=== PATIENT | male | born 1945 | race Caucasian/White ===

== ENCOUNTER 2020-06-18 09:26 | Outpatient (CLI) | payer MEDICARE, OTHER, SELFPAY ==
--- NOTE | 2020-06-18 09:45 | XR_ITS ---
WS: [id number] EXAM: ABDOMINAL KUB DATE OF EXAMINATION: 06/18/2020, 0945 hours COMPARISON: Abdominal KUB from 10/03/2018 HISTORY: Patient is 75 years old with any stone follow-up. FINDINGS: Bowel gas pattern is normal. Clips in the right upper quadrant correlate with cholecystectomy changes . Few flecks of calcific density are seen overlying the area of the left kidney silhouette. Whether t his is in the colon or in the kidney is uncertain. There is a dense focus within the left paraspinal region L2-3 level. Not convinced this represents a ureteral stone secondary to the density. Most like ly is an ingested density. No calcifications are seen over the course of the ureters. Multiple calcif ications in the pelvis are felt to represent phleboliths. XR/XR KUB [id number] IMPRESSION: Questionable small calcifications overlying the left kidney silhouette versus i n the colon. Otherwise no definite calcifications to suggest renal or ureteral calculi noted.
== END 2020-06-18 09:27 | disposition home or self-care (01) ==
LOC: RAD 09:33
PROVIDERS: PCP Family Medicine; Visit Provider Urology
DX: N20.9 Urinary calculus, unspecified (principal)
CPT/HCPCS: 74018; 81001

== ENCOUNTER 2021-01-12 06:00 | Outpatient (RCR) | payer MEDICARE, OTHER, SELFPAY | END 2021-01-27 23:59 | disposition home or self-care (01) | LOC: GPT 06:00 | PROVIDERS: PCP Family Medicine; Referring Provider Family Medicine; Visit Provider Family Medicine | DX: M25.562 Pain in left knee (principal) | CPT/HCPCS: 97032; 97110; 97112; 97140; 97161; 97530 ==

== ENCOUNTER 2021-06-21 09:05 | Outpatient (CLI) | payer MEDICARE, OTHER, SELFPAY ==
--- NOTE | 2021-06-21 09:15 | XR_ITS ---
WS: [id number] Exam: XR KUB [id number] Date/Time of Exam: 06/21/2021 9:15 AM Reason For Exam: UROLITHIASIS Comparison 06/18/2020. 3 mm calcification superimposes the left renal silhouette and probably represents a renal stone. This can be seen on the prior study. No other calcifications are noted over the region of the kidneys. No bowel obstruction or free air. Visualized organ margins appear normal. Signs of prior cholecystectom y. Numerous pelvic calcifications noted which are probably phleboliths. XR/XR KUB [id number] IMPRESSION: 1. 3 mm calcification superimposes the lower pole left kidney and probably repr esents a small renal stone. 2. No acute abdominal finding.
== END 2021-06-21 09:06 | disposition home or self-care (01) ==
LOC: RAD 09:09
PROVIDERS: PCP Family Medicine; Visit Provider Urology
DX: N20.9 Urinary calculus, unspecified (principal); Z12.5 Encounter for screening for malignant neoplasm of prostate; N40.1 Benign prostatic hyperplasia with lower urinary tract symptoms; N13.8 Other obstructive and reflux uropathy
CPT/HCPCS: 74018; 81003; G0103

== ENCOUNTER 2021-08-03 08:08 | Outpatient (CLI) | payer MEDICARE, OTHER, SELFPAY ==
--- NOTE | 2021-08-03 08:15 | XR_ITS ---
WS: [id number] XR KUB [id number] REASON FOR EXAM: UROLITHIASIS FINDINGS: No calculus is identified overlying the right kidney. On the previous examination of 06/21/2021 there was a group of 4 calculi overlying the medial most mid left kidney. The 2 larger calculi were elongated and in the longest axis measured 12 mm. At this rachel e it is difficult to clearly identify the left intrarenal calculi with certainty. There are vague den sities overlying the medial mid left renal silhouette. There is however an 8 x 5 calculus in the left upper pelvis not present on the previous examination. No other significant interval change or new abnormality is identified. XR/XR KUB [id number] IMPRESSION: No calculi can be identified within the right kidney. Cannot clearly identify the previously defined intrarenal calculi on the left a lthough there are vague densities in the medial mid left kidney. There is howev er a new calculus seen overlying the pelvis which presumably is one of the prev iously defined left intrarenal calculi that has now migrated to the distal left ureter. One could consider a CT scan of the abdomen and pelvis without contrast clarify the number and position of the urinary tract calculi in this case.
== END 2021-08-03 08:09 | disposition home or self-care (01) ==
PROVIDERS: PCP Family Medicine; Visit Provider Urology
DX: N20.9 Urinary calculus, unspecified (principal); N40.1 Benign prostatic hyperplasia with lower urinary tract symptoms; N13.8 Other obstructive and reflux uropathy
CPT/HCPCS: 74018; 81003

== ENCOUNTER 2021-08-23 09:58 | Outpatient (CLI) | payer MEDICARE, OTHER, SELFPAY ==
--- NOTE | 2021-08-23 10:00 | CT_ITS ---
WS: [id number] CT ABDOMEN AND PELVIS NONCONTRAST HISTORY: UROLITHIASIS TECHNIQUE: Imaging performed through the abdomen and pelvis. Coronal and sagittal reformats are submi tted. All CT scans at [facility] use at least one of these dose optimization techniques: auto mated exposure control; mA and/or kV adjustment per patient size (includes targeted exams where dose is matched to clinical indication); or iterative reconstruction. DLP: 1223.64 mGy.cm COMPARISON: 04/21/2017 Lower thorax: Chronic emphysema at the lung bases. Bilateral lower lobe bronchiectasis, LEFT greater than RIGHT. Heart size is normal. Moderate size hiatal hernia. Liver: Normal size liver. No mass or bile duct dilatation. Gallbladder: Prior cholecystectomy. Pancreas: Normal size and attenuation. Normal pancreatic duct. No pancreatitis or mass. Spleen: Normal size spleen with granulomata. Adrenal glands: Normal. No mass. Right kidney: Normal size kidney with parapelvic cysts. No hydronephrosis or hydroureter. No renal ca lcifications. Exophytic mass from the posterior mid kidney measures 16 x 16 mm with increased Hounsfi eld units. Consistent with a complex cyst and has only minimally increased in size since 04/21/2017. Left kidney: Cortical thinning of the upper and mid kidney. Parapelvic cysts. Cortical calcification measures 3 mm in the lower kidney. No ureteral calcification or obstruction. Aorta: Mild atherosclerosis abdominal aorta with no aneurysm. No free fluid, intraperitoneal air or significant lymphadenopathy. GI tract: The appendix is prominent but there is no adjacent inflammation. Similar to the prior study . Moderate fecal retention in the RIGHT colon. Numerous diverticula throughout the sigmoid colon with out adjacent inflammation. Abdominal wall: Small umbilical hernia contains fat only. Pelvis: Urinary bladder is not distended. Prostate gland is minimally prominent with central calcific ation. Bilateral fat-containing inguinal hernias. Osseous structures: Unremarkable. CT/CT abdomen pelvis wo con [id number] IMPRESSION: 1. No hydronephrosis or hydroureter. 2. Cortical thinning mid and upper LEFT renal cortex. 3. Complex cyst posterior mid RIGHT kidney has remained stable over multiple p rior studies with only minimal increase in size. 4. Prior cholecystectomy. 5. Sigmoid diverticulosis without acute diverticulitis. 6. Mild prostate enlargement.
== END 2021-08-23 09:59 | disposition home or self-care (01) ==
LOC: RAD 10:00
PROVIDERS: PCP Family Medicine; Visit Provider Urology
DX: N20.9 Urinary calculus, unspecified (principal); N28.1 Cyst of kidney, acquired; Z90.49 Acquired absence of other specified parts of digestive tract; K57.30 Diverticulosis of large intestine without perforation or abscess without bleeding; N40.0 Benign prostatic hyperplasia without lower urinary tract symptoms; R39.15 Urgency of urination
CPT/HCPCS: 74176; 81003

== ENCOUNTER → 2022-02-09 12:12 | Outpatient (BNVA) | payer MEDICARE, OTHER, SELFPAY | PROVIDERS: PCP Family Medicine; Visit Provider Family Medicine | DX: R05.9 Cough, unspecified (principal) | CPT/HCPCS: 71046; 87400 ==

== ENCOUNTER 2022-08-23 08:05 | Outpatient (CLI) | payer MEDICARE, OTHER, SELFPAY ==
--- NOTE | 2022-08-23 08:25 | XR_ITS ---
WS: [id number] Exam: XR KUB [id number] Date/Time of Exam: 08/23/2022 8:26 AM Reason For Exam: Urolithiasis Comparison 08/03/2021 No bowel obstruction or free air. No calcifications seen in the region of the kidneys. 1.2 cm left pa raspinal calcification seen at the L4-5 disc level. This is nonspecific. Nonspecific pelvic calcifica tions. No sign of organ enlargement. Signs of prior cholecystectomy. Bony structures are intact. XR/XR KUB [id number] IMPRESSION: 1. No acute abdominal finding. 2. 1.2 cm left paraspinal calcification at the level of the L4-5 disc. Signific ance of this is undetermined.
== END 2022-08-23 08:06 | disposition home or self-care (01) ==
LOC: RAD 08:12
PROVIDERS: PCP Family Medicine; Visit Provider Urology
DX: N20.9 Urinary calculus, unspecified (principal); N40.1 Benign prostatic hyperplasia with lower urinary tract symptoms; N13.8 Other obstructive and reflux uropathy; R39.15 Urgency of urination; N28.1 Cyst of kidney, acquired
CPT/HCPCS: 51798; 74018; 81003; 99213

== ENCOUNTER → 2024-10-14 14:37 | Outpatient (BNVA) | payer MEDICARE, OTHER, SELFPAY | PROVIDERS: PCP Nurse Practitioner Family; Visit Provider Nurse Practitioner Family | DX: R11.10 Vomiting, unspecified (principal); R05.9 Cough, unspecified | CPT/HCPCS: 87400; 87426 ==

== ENCOUNTER → 2025-02-04 10:30 | Outpatient (BNVA) | payer MEDICARE, OTHER, SELFPAY | PROVIDERS: PCP Nurse Practitioner Family; Visit Provider Nurse Practitioner Family | DX: I10 Essential (primary) hypertension (principal) | CPT/HCPCS: 80053; 80061; 85025 ==

== ENCOUNTER → 2025-04-17 10:25 | Outpatient (BNVA) | payer MEDICARE, OTHER, SELFPAY | PROVIDERS: PCP Nurse Practitioner Family; Visit Provider Family Medicine | DX: J44.9 Chronic obstructive pulmonary disease, unspecified (principal) | CPT/HCPCS: 71046 ==

== ENCOUNTER → 2025-04-28 09:30 | Outpatient (BNVA) | payer MEDICARE, OTHER, SELFPAY | PROVIDERS: PCP Nurse Practitioner Family; Referring Provider Student in an Organized Health Care Education/Training Program; Visit Provider Nurse Practitioner Family | DX: I10 Essential (primary) hypertension (principal) | CPT/HCPCS: 80061 ==

== ENCOUNTER → 2025-06-17 11:16 | Outpatient (BNVA) | payer MEDICARE, OTHER, SELFPAY | PROVIDERS: PCP Nurse Practitioner Family; Visit Provider Family Medicine | DX: R30.0 Dysuria (principal); N39.0 Urinary tract infection, site not specified | CPT/HCPCS: 81000 ==

== ENCOUNTER → 2025-10-22 08:28 | Outpatient (BNVA) | payer MEDICARE, OTHER, SELFPAY | PROVIDERS: PCP Nurse Practitioner Family; Visit Provider Family Medicine | DX: J98.8 Other specified respiratory disorders (principal) | CPT/HCPCS: 87400; 87420; 87426 ==